=== PATIENT | female | born 1955 | race Caucasian/White ===

== ENCOUNTER → 2017-03-09 | Outpatient (CLI) | payer MEDICARE ==
[~2017-03-09] MED LIST: AMOXIL500 MG PO; ASPIRIN 325MG325 MG PO; B 12 OR; BUPROPION HCL150 M2 PO; CALCIUM 500500 M1 PO; CALCIUM CARBON600 MG PO; CARAFATE 1GM TAB1 GM PO; CEFDINIR 300MG300 MG PO; COREG 12.5 MG12.5 MG PO; DIOVAN80 MG PO; EFFIENT10 MG PO; FUROSEMIDE 40MG40 M1 PO; GABAPENTIN 100100 MG PO; HUMULIN 70/30 PE3 ML SC; Isosorbide Mono30 MG PO; LASIX 40MG. TAB40 MG PO; LISINOPRIL; LOSARTAN POTASS1 TA1 PO; METFORMIN1000 MG PO; MIMVEY 1 MG-0.51 TAB PO; MULTI-VITAMIN1 EAC1 PO; MULTIVITAMIN1 TA1 PO; NOVOLOG MIX 70/10 ML SC; OMEPRAZOLE40 MG PO; PHENERGAN 25MG.25 M1 PO; PLAVIX75 MG PO; PREDNISONE20 MG PO; RANEXA500 MG PO; RANITIDINE HCL150 MG PO; SIMVASTATIN20 MG PO; SIMVASTATIN40 MG PO; TANZEUM30 MG SC; VERAPAMIL SR 2240 MG PO; [UNRECOGNIZED DRUG - REMARK]
--- NOTE | 2017-03-09 13:14 | CARDIOVASCULAR REPORT ---
"Cerebrovascular Exam Indications: Follow-up carotid 433.10. 785.9 Bruit. IMPRESSIONS 1. The bilateral vertebral arteries are patent with normal antegrade flow. 2. Study suggests 50-69% stenosis involving the right internal carotid artery. No change from the study of 24-Mar-2016. 3. Study suggests less than 20% stenosis involving the left internal carotid artery. No change from the study of 24-Mar-2016. History: A bruit of the left carotid artery. Risk factors: Hypertension. Diabetes mellitus. Carotid duplex study. Complete study and Doppler flow study including spectral analysis, color and avalos scale imaging. Location: Vascular laboratory. Patient status: Outpatient. Tables: Arterial flow: + +--------+--------+ |Location |V sys |V ed | + +--------+--------+ |Right CCA - proximal|62.2cm/s|17cm/s | + +--------+--------+ |Right CCA - distal |75.4cm/s|23.9cm/s| + +--------+--------+ |Right ECA |89.9cm/s|--------| + +--------+--------+ |Right ICA - proximal|127cm/s |47.9cm/s| + +--------+--------+ |Right ICA - mid |145cm/s |50.3cm/s| + +--------+--------+ |Right ICA - distal |106cm/s |33.8cm/s| + +--------+--------+ |Right vertebral |48.7cm/s|--------| + +--------+--------+ |Left CCA - proximal |84.1cm/s|22cm/s | + +--------+--------+ |Left CCA - distal |73.1cm/s|22cm/s | + +--------+--------+ |Left ECA |73.1cm/s|--------| + +--------+--------+ |Left ICA - proximal |80.1cm/s|23.6cm/s| + +--------+--------+ |Left ICA - mid |83.3cm/s|33.8cm/s| + +--------+--------+ |Left ICA - distal |90.4cm/s|38.5cm/s| + +--------+--------+ |Left vertebral |32.2cm/s|--------| + +--------+--------+ Velocity ratios: + + + + + + | |Right, V sys|Right, V ed|Left, V sys|Left, V ed| + + + + + + |Max ICA/dist CCA|1.92 |2.1 |1.24 |1.75 | + + + + + + (Report amended ) Electronically signed by: Phong Glaser [id number]"
== END ==
LOC: RT 12:33
DX: I65.23 Occlusion and stenosis of bilateral carotid arteries (principal)

== ENCOUNTER → 2017-03-25 | Outpatient (CLI) | payer MEDICARE ==
--- NOTE | 2017-03-30 10:51 | RADIOLOGY REPORT PS360 ---
DIG MAMM-SCREEN RADHA W/CAD CAD Screening ORDERING PHYSICIAN : Elsa Francisco APRN PATIENT AGE: 61 years GENDER: Female COMPARISON: Previous mammograms: INDICATION: Routine screening taking estrogen. 61-year-old. Mother breast cancer age 75. TECHNIQUE: Standard CC and MLO images were obtained. R2 CAD reviewed. Additional MLO view nipple profile FINDINGS: Lower density breast with minimal fibroglandular elements bilaterally. No significant new findings no mass lesion. No suspicious calcifications. . Prominent vascular calcification for 61-year-old. Nonspecific observation but can be associated with more generalized at the right disease & cardiovascular disease IMPRESSION: ...... Stable bilateral mammogram . No suspicious findings Incidental observed prominent vascular calcifications for a.. 61-year-old Bilateral follow-up one year BI-RADS CATEGORY: 1_Negative RECOMMENDED FOLLOWUP: 12M 12 MONTH FOLLOW-UP (A letter has been sent to the patient regarding results of the study.)
== END ==
LOC: RAD 15:37
DX: Z12.31 Encounter for screening mammogram for malignant neoplasm of breast (principal)
CPT/HCPCS: G0202